=== PATIENT | male | born 1940 | race Caucasian/White ===

== ENCOUNTER 2016-09-17 19:25 | Observation (INO) | payer MEDICARE, BC ==
[2016-09-17] MEDS ORDERED: ASPIRIN 81 MG CHEW PO STA (20:32)
[2016-09-17] MEDS ORDERED: NITROGLYCERIN SL TABS 0.4 MG TAB SUBLINGUAL STA ×3 (20:32)
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
[2016-09-17 20:42] LABS: Basophils % (A) 0 %; CH 30.9; CHCM 34.1; Eosinophils # (A) 0.2 k/uL (0-0.7); Eosinophils % (A) 3 %; HCT 40.8 % (39.0-53.0); HDW 2.32; HGB 13.5 gm/dL (13.0-17.5); Luc # (Auto) 0.08; Luc % (Auto) 1; Lymphocytes # (A) 0.8 k/uL (1.0-4.8); Lymphocytes % (A) 10 %; MCH 30.2 pg (25.0-35.0); MCHC 33.2 g/dL (31.0-37.0); Mean Platelet Volume 7.6; Monocytes # (A) 0.4 k/uL (0-1.0); Monocytes % (A) 5 %; Neutrophils # (A) 6.2 k/uL (1.3-7.7); Neutrophils % (A) 80 %; RBC 4.48 m/uL (4.30-5.90); WBC 7.7 k/uL (3.8-10.6); WBC (Perox) 7.52
[2016-09-17 20:51] LABS: ALT 109 U/L (21-72); AST 161 U/L (17-59); Alkaline Phosphatase 131 U/L (38-126); Anion Gap 12 mmol/L; Blood Urea Nitrogen 16 mg/dL (9-20); Calcium 8.8 mg/dL (8.4-10.2); Carbon Dioxide 29 mmol/L (22-30); Chloride 101 mmol/L (98-107); Glucose 164 mg/dL (74-99); Non-African American GFR(MDRD) >60 (>60 ml/min/1.73 sqM); Potassium 4.1 mmol/L (3.5-5.1); Sodium 142 mmol/L (137-145); Total Bilirubin 1.4 mg/dL (0.2-1.3); Total Protein 7.1 g/dL (6.3-8.2)
[2016-09-17 20:56] LABS: Partial Thromboplastin Time 24.4 sec (22.0-30.0); Prothrombin Time 10.3 sec (9.0-12.0)
[2016-09-17 21:01] LABS: Creatine Kinase 198 U/L (55-170)
[2016-09-17 21:15] LABS: Troponin I <0.012 ng/mL (0.000-0.034)
[2016-09-17] MEDS ORDERED: NITROGLYCERIN OINT 1 INCH/GM PACKET TOPICAL STA (21:18)
--- NOTE | 2016-09-17 21:21 | XR ---
EXAMINATION TYPE: XR chest 2V DATE OF EXAM: 09/17/2016 8:52 PM COMPARISON: Prior chest x-ray 30 Dec 2015 HISTORY: Nausea and chest pain TECHNIQUE: Frontal and lateral views of the chest are obtained on 3 images. FINDINGS: There is no focal air space opacity, pleural effusion, or pneumothorax seen. The cardiac silhouette size is within normal limits. Postop changes are present in the thoracic spine. Pleural ca lcifications compatible with asbestos related disease. There are overlying cardiac leads. The osseou s structures are intact. IMPRESSION: No acute cardiopulmonary process.
[2016-09-17 21:25] LABS: Creatine Kinase MB 5.4 ng/mL (0.0-2.4)
[2016-09-17] MEDS ORDERED: ENALAPRILAT 1.25 MG/ML 1 ML VIAL IVP STA (21:55)
[2016-09-17] MEDS ORDERED: HEPARIN SODIUM,PORCINE 5,000 UNIT/ML 1 ML VIAL IV ONE (21:59)
[2016-09-17] MEDS ORDERED: HEPARIN SODIUM,PORCINE 5,000 UNIT/ML 1 ML VIAL IV PRN (21:59)
[2016-09-17] MEDS ORDERED: NITROGLYCERIN SL TABS 0.4 MG TAB SUBLINGUAL PRN (21:59)
[2016-09-17] MEDS ORDERED: HEPARIN SODIUM,PORCINE/D5W PMX 25,000 UNIT in DEXTROSE/WATER 1 500ML.BAG IV SCH (22:00)
[2016-09-18] MEDS: NITROGLYCERIN OINT 1 INCH/GM PACKET TOPICAL SCH ×4 (01:12→18:37)
[2016-09-18 03:43] LABS: Mean Platelet Volume 7.8
[2016-09-18 04:04] LABS: Cholesterol 80 mg/dL (<200); HDL Cholesterol 43 mg/dL (40-60); Triglycerides 50 mg/dL (<150)
[2016-09-18 04:27] LABS: Troponin I 0.017 ng/mL (0.000-0.034)
[2016-09-18 04:31] LABS: Creatine Kinase MB 3.8 ng/mL (0.0-2.4)
[2016-09-18] MEDS ORDERED: NITROGLYCERIN SL TABS 0.4 MG TAB SUBLINGUAL PRN (07:44)
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
[2016-09-18] MEDS ORDERED: LOSARTAN 50 MG TAB PO SCH (09:00)
[2016-09-18 09:04] LABS: Troponin I 0.02 ng/mL (0.000-0.034)
[2016-09-18 09:10] LABS: Creatine Kinase MB 3.7 ng/mL (0.0-2.4)
[2016-09-18] MEDS: ASPIRIN 325 MG TAB PO SCH (09:54)
[2016-09-18] MEDS: LEVOTHYROXINE 50 MCG TAB PO SCH (09:54)
[2016-09-18 12:28] LABS: Glucose,Whole Blood 116 mg/dL (75-99)
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
[2016-09-18] MEDS ORDERED: DOBUTamine DRIP for NUC MED 500 MG in DEXTROSE/WATER 1 250ML.BAG IV ONE (20:00)
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
[2016-09-19] MEDS: LOSARTAN 50 MG TAB PO SCH ×2 (00:40→13:02)
[2016-09-19] MEDS: LEVOTHYROXINE 50 MCG TAB PO SCH (06:38)
[2016-09-19] MEDS ORDERED: DOBUTamine DRIP for NUC MED 500 MG in DEXTROSE/WATER 1 250ML.BAG IV ONE (07:00)
[2016-09-19 07:40] LABS: Basophils % (A) 1 %; CH 30.8; CHCM 33.5; Eosinophils # (A) 0.5 k/uL (0-0.7); Eosinophils % (A) 9 %; HCT 37.7 % (39.0-53.0); HDW 2.35; HGB 12.1 gm/dL (13.0-17.5); Luc % (Auto) 2; Lymphocytes # (A) 1.5 k/uL (1.0-4.8); Lymphocytes % (A) 25 %; MCH 29.6 pg (25.0-35.0); MCV 92.5 fL (80.0-100.0); Mean Platelet Volume 8.8; Monocytes # (A) 0.5 k/uL (0-1.0); Monocytes % (A) 8 %; Neutrophils # (A) 3.3 k/uL (1.3-7.7); Neutrophils % (A) 56 %; RBC 4.08 m/uL (4.30-5.90); RDW 13.2 % (11.5-15.5); WBC 5.9 k/uL (3.8-10.6); WBC (Perox) 5.94
[2016-09-19 07:54] LABS: ALT 271 U/L (21-72); AST 229 U/L (17-59); Alkaline Phosphatase 141 U/L (38-126); Amylase <30 U/L (30-110); Anion Gap 8 mmol/L; Blood Urea Nitrogen 15 mg/dL (9-20); Calcium 8.7 mg/dL (8.4-10.2); Carbon Dioxide 27 mmol/L (22-30); Chloride 107 mmol/L (98-107); Glucose 92 mg/dL (74-99); Non-African American GFR(MDRD) >60 (>60 ml/min/1.73 sqM); Potassium 4.1 mmol/L (3.5-5.1); Sodium 142 mmol/L (137-145)
--- NOTE | 2016-09-19 08:01 | P.PN ---
Progress Note - Text The patient is a 76-year-old gentleman who presented yesterday with pain that started actually in the epigastric region and radiated to the chest and back. Patient does have a previous cardiac history of previous stenting. He was found to have elevated liver function tests. Patient has been seen by cardiology and by surgery. Please refer to their notes. Presently undergoing ultrasound testing. He denies any recurrence of this pain. Vital signs reveal temperature 98.1 with a pulse of 49 and respirations 16. Blood pressure is 155/74 and is 94% saturated. The clinical exam is stable and unchanged. Laboratory values White count 5.9 with hemoglobin 12.1 and a platelet count of 162. Comprehensive metabolic panel is pending. Impressions and plans: Cardiology and surgical notes regarded. Ultrasound in process. Labs pending. Await for any further recommendations for testing from surgery and cardiology. Discussed with patient at bedside. Questions answered.
--- NOTE | 2016-09-19 08:35 | US ---
EXAMINATION TYPE: US gallbladder DATE OF EXAM: 09/19/2016 7:51 AM COMPARISON: CT on PACS from 2014 CLINICAL HISTORY: Pain. epigastric pain EXAM MEASUREMENTS: Liver Length: 16.3 cm Gallbladder Wall: 0.2 cm CBD: 0.4 cm Right Kidney: 13.5 x 5.5 x 5.7 cm Findings: limited exam by body habitus and midline bowel gas Pancreas: Obscured by bowel gas Liver: limited to intercostal window, visualized portions wnl Gallbladder: No stones seen Evidence for sonographic Davis's sign: No CBD: limited vis, appears wnl Right Kidney: No hydronephrosis or masses seen patient stated he was very tender when scanning over his right kidney area. IMPRESSION: 1. No acute process.
[2016-09-19 12:13] LABS: Glucose,Whole Blood 96 mg/dL (75-99)
--- NOTE | 2016-09-19 12:16 | ECHOS ---
DATE OF SERVICE: 09/19/2016 AGE: 76Y SEX: M HT: 68" WT: 224 lbs. Protocol Johnathan: Others: Dobutamine Stress Echo Stage: 3 Dur. of Exercise: 7:10 *Heart Rate Blood Pressure *Rest: 46 Rest: 133/76 * *Max. Achieved: 126 Maximum BP: 213/43 85% PMHR: 124 100% PMHR: 146 *METS: - INDICATIONS: Chest pain. MEDICATIONS: Atorvastatin, losartan, metformin, levothyroxine, Zetia. FINDINGS: Mr. Cordoba a 76-year-old gentleman with history of hypertension, diabetes and angina, being evaluated for symptoms of chest and abdominal pain. Baseline EKG showed sinus bradycardia with a heart rate of 46. Blood pressure 133/76. A standard dose of dobutamine was initiated at 10 mcg and was titrated to 30 mcg, achieving a maximum heart rate of 126 with a blood pressure of 213/43. EKGs taken during and after the dobutamine infusion did not reveal any significant changes from the baseline. Patient had occasional to frequent unifocal PVCs during the test. ECHO DATA: Baseline echo images show normal wall motion and thickening. Echo images taken at low-dose and high-dose dobutamine showed augmentation of the wall motion and thickening in all the segments. FINAL IMPRESSION: 1. Negative dobutamine stress test. 2. Negative dobutamine stress echo.
[2016-09-19] MEDS: ASPIRIN 325 MG TAB PO SCH (13:02)
[2016-09-19 16:09] VITALS: BP 168/62; PULSE 43; RESP 16; TEMP 98.5
--- NOTE | 2016-09-19 16:48 | P.PN ---
Subjective Principal diagnosis: Abdominal pain Patient had a gallbladder ultrasound this morning that did not reveal any definite gallbladder abnormalities. He was noted to have tenderness over his right kidney. His common bile duct size was thought to be normal. His liver enzymes remain elevated and have gone up slightly but his bilirubin is improved. Amylase and lipase normal. Cardiac evaluation has been completed and was normal. His pain is resolved. Plans are currently underway for the patient to be discharged. Objective - Vital Signs Vital signs: Vital Signs Temp 98.5 F 09/19/16 16:00 Pulse 43 L 09/19/16 16:00 Resp 16 09/19/16 16:00 BP 168/62 09/19/16 16:00 Pulse Ox 97 09/19/16 16:00 Intake & Output 09/18/16 09/19/16 09/19/16 18:59 06:59 18:59 Intake Total 476 Output Total 1350 Balance -874 Weight 102 kg Intake: Oral 476 Output: Urine 1350 Other: Voiding Method Toilet # Voids 1 - Exam Abdomen: Soft, nontender, nondistended - Labs CBC & Chem 7: 09/19/16 07:21 09/19/16 07:21 Labs: Abnormal Lab Results - Last 24 Hours (Table) 09/19/16 09/19/16 Range/Units 07:21 07:21 RBC 4.08 L (4.30-5.90) m/uL Hgb 12.1 L (13.0-17.5) gm/dL Hct 37.7 L (39.0-53.0) % AST 229 H (17-59) U/L ALT 271 H (21-72) U/L Alkaline Phosphatase 141 H (38-126) U/L Total Protein 6.0 L (6.3-8.2) g/dL Albumin 3.3 L (3.5-5.0) g/dL Amylase <30 L (30-110) U/L Assessment and Plan (1) Abdominal pain Narrative/Plan: If the patient is discharged today would consider outpatient CAT scan of the abdomen. Would also advise repeat liver enzymes in the outpatient setting. Consider GI evaluation for the elevated liver enzymes. The patient's presentation could still be related to choledocholithiasis given the elevation in his liver enzymes but would prefer further workup prior to elective cholecystectomy. Patient will follow-up with me as an outpatient. Status: Acute
[2016-09-19] MEDS ORDERED: EZETIMIBE 10 MG TAB PO SCH (21:00)
[2016-09-19] MEDS ORDERED: ATORVASTATIN 80 MG TAB PO SCH (21:00)
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
== END 2016-09-19 16:40 | disposition home or self-care (01) ==
LOC: EC 19:25 → 3OBS 21:59
PROVIDERS: ADMIT Internal Medicine; ATTEND Internal Medicine
DX: K80.50 Calculus of bile duct without cholangitis or cholecystitis without obstruction (principal); R07.89 Other chest pain; I25.10 Atherosclerotic heart disease of native coronary artery without angina pectoris; E11.9 Type 2 diabetes mellitus without complications; E78.5 Hyperlipidemia, unspecified; I10 Essential (primary) hypertension; E03.9 Hypothyroidism, unspecified; N40.0 Benign prostatic hyperplasia without lower urinary tract symptoms; R94.5 Abnormal results of liver function studies; K59.00 Constipation, unspecified; H91.90 Unspecified hearing loss, unspecified ear; I25.2 Old myocardial infarction; M19.90 Unspecified osteoarthritis, unspecified site; R74.8 Abnormal levels of other serum enzymes; Z95.5 Presence of coronary angioplasty implant and graft; Z96.652 Presence of left artificial knee joint; Z87.891 Personal history of nicotine dependence; Z77.098 Contact with and (suspected) exposure to other hazardous, chiefly nonmedicinal, chemicals; Z77.090 Contact with and (suspected) exposure to asbestos; Z79.84 Long term (current) use of oral hypoglycemic drugs; Z79.82 Long term (current) use of aspirin; Z79.899 Other long term (current) drug therapy; Z88.5 Allergy status to narcotic agent; Z82.49 Family history of ischemic heart disease and other diseases of the circulatory system
CPT/HCPCS: 99285 ×2; 96365 ×2; 96366 ×20; 96375 ×2; 96376 ×2; 36415; 94760; 93005; 93017; 93350; 85379; 80061; 80053 ×2; 82150; 82550 ×2; 82553 ×2; 83690; 83735; 84484 ×2; 85025 ×2; 85049; 85610; 85730 ×3; 71020; 76705; G0378 ×3; J1250; J1644 ×2

== ENCOUNTER → 2016-09-26 | Outpatient (CLI) | payer MEDICARE, BC ==
[2016-09-26 19:49] LABS: Blood Urea Nitrogen 17 mg/dL (9-20); Non-African American GFR(MDRD) >60 (>60 ml/min/1.73 sqM)
--- NOTE | 2016-09-26 21:24 | CT ---
EXAMINATION TYPE: CT abdomen w con DATE OF EXAM: 09/26/2016 8:22 PM COMPARISON: Gallbladder ultrasound [address] cap February 11 2015. HISTORY: Calculus of bile duct with acute cholecystitis without obstruction per order. Upper abdomina l pain per patient. CT DLP: 975.40 mGycm, Automated Exposure Control for Dose Reduction was Utilized. CONTRAST: CT scan of the abdomen is performed with oral and with IV Contrast, patient injected with 100 mL of O mnipaque 300. FINDINGS: LUNG BASES: Calcified pleural plaques bilaterally suggest prior asbestos exposure are redemonstrated. Mild cardiomegaly with coronary artery calcification is again seen. LIVER/GB: Subcentimeter low dense lesions scattered throughout the liver are too small to further kimmy racterize but presumed benign. No CT dense intraluminal gallstones are seen. No surrounding inflammatory changes noted. No biliary d ilatation is present. PANCREAS: No significant abnormality is seen. SPLEEN: No significant abnormality is seen. ADRENALS: Left greater than right thickened adrenal glands bilaterally are redemonstrated and may ref lect hyperplasia. KIDNEYS: Subcentimeter low dense lesions scattered throughout both kidneys, right greater than left, are too small to further characterize but presumed benign. BOWEL: Oral contrast only reaches distal jejunal level in the left abdomen. No suspicious small or la rge bowel dilatation is seen. There is persistent abnormal wall thickening near the gastroesophageal junction at level of diaphragmatic hiatus, if there is no history of prior surgery neoplasm needs to be excluded. Scattered colonic diverticula are felt present. No acute diverticulitis is seen. LYMPH NODES: No greater than 1cm abdominal lymph nodes are appreciated. OSSEOUS STRUCTURES: Multilevel spurring in the thoracolumbar spine is present. Ossific fusion lumbosa cral junction is noted. OTHER: There is moderate atherosclerotic change of aorta and branch vessels. IMPRESSION: No CT evidence for acute cholecystitis. No significant acute finding is seen to account for patient's clinical symptoms. Attention to the gastroesophageal junction, presents with severe wal l thickening could reflect product Charles fundoplication surgery, if there is no such history neoplas m would need to be excluded by direct visualization.
== END | disposition home or self-care (01) ==
LOC: RADCTMAIN 18:39
PROVIDERS: ATTEND Internal Medicine
DX: R10.9 Unspecified abdominal pain (principal)
CPT/HCPCS: 82565; 84520; 74160; 36415; Q9967

== ENCOUNTER 2016-10-09 07:27 | Day surgery (SDC) | payer MEDICARE, BC ==
[2016-10-05 13:30] VITALS: BMI 32.1
[~2016-10-09 07:27] MED LIST: LACTATED RINGERS 1,000 ML IV SCH
[2016-10-09 07:50] VITALS: RESP 16; TEMP 97.7
[2016-10-09] MEDS ORDERED: LIDOCAINE 1% 20 ML VIAL (10MG/ML) FOR IV START INTRADERMA ONE (07:54)
[2016-10-09 07:58] LABS: Glucose,Whole Blood 97 mg/dL (75-99)
[2016-10-09] MEDS ORDERED: LIDOCAINE 1% INJ 10MG/ML (20 ML MDV) ONE (08:05)
[2016-10-09] MEDS ORDERED: GLYCOPYRROLATE 0.2 MG/ML 2 ML VIAL ONE (08:05)
[2016-10-09] MEDS ORDERED: PROPOFOL 10 MG/ML 20 ML VIAL IV ONE (08:05)
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
[2016-10-09 09:13] VITALS: BP 145/63; PULSE 58
== END 2016-10-09 09:38 | disposition home or self-care (01) ==
LOC: ORWHC2ENDO 07:27
DX: K29.50 Unspecified chronic gastritis without bleeding (principal); K44.9 Diaphragmatic hernia without obstruction or gangrene; K20.9 Esophagitis, unspecified; R93.5 Abnormal findings on diagnostic imaging of other abdominal regions, including retroperitoneum; I10 Essential (primary) hypertension; E78.5 Hyperlipidemia, unspecified; I25.10 Atherosclerotic heart disease of native coronary artery without angina pectoris; E07.9 Disorder of thyroid, unspecified; Z79.82 Long term (current) use of aspirin; Z79.899 Other long term (current) drug therapy; Z88.5 Allergy status to narcotic agent; I25.2 Old myocardial infarction
CPT/HCPCS: 88305; 88342; 43239; J2001; J2704; 99153

== ENCOUNTER → 2017-09-19 | Outpatient (CLI) | payer MEDICARE, BC ==
--- NOTE | 2017-09-20 10:20 | MR ---
MRI right hip HISTORY: Right hip pain, osteoarthritis Multiplanar multisequence imaging obtained through the pelvis with small iddio-yg-tabg imaging throug h the right hip No comparisons Marginal spurring present in the femoral head. There is some minimal subchondral reactive bone marrow edema present. Grade 2 to grade III chondromalacia present in the right femoral head. No sizable klarissa nt effusion. There are cystic foci adjacent to the acetabular labrum which could possibly represent p sánchez labral cysts with some questionable increased signal within the acetabular labrum, difficult to e xclude a labral tear. Degenerative disc changes are noted incidentally within the lumbar spine. There is some increased signal present at the insertion of the gluteus tendon present which may represent tendinosis or possibly trochanteric bursitis right greater than left. The prostate is enlarged. There is an inferior impression on the urinary bladder. Fluid signal surrou nds the prostate. Urinary bladder shows a thickened wall likely due to chronic outlet obstruction. Di verticula present associated with the urinary bladder. Diverticulosis also noted within the sigmoid c olon. No evident adenopathy. IMPRESSION: Correlate for possible tendinosis at the insertion of the gluteus tendon on the greater t rochanter, difficult to exclude a partial tear. Mild osteoarthritic changes as described. 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 Lumbar MRI may be of benefit. Prostatic enlargement with surround ing fluid present, consider urology consult.
== END | disposition home or self-care (01) ==
LOC: RADMRIMAIN 16:29
PROVIDERS: ATTEND Orthopaedic Surgery
DX: M16.11 Unilateral primary osteoarthritis, right hip (principal); M51.37 Other intervertebral disc degeneration, lumbosacral region

== ENCOUNTER → 2018-03-07 | Outpatient (CLI) | payer MEDICARE, BC ==
[2018-03-07 11:25] LABS: ALT 42 U/L (21-72); AST 48 U/L (17-59); Albumin 3.9 g/dL (3.5-5.0); Alkaline Phosphatase 94 U/L (38-126); Anion Gap 8 mmol/L; Blood Urea Nitrogen 18 mg/dL (9-20); Calcium 9.2 mg/dL (8.4-10.2); Carbon Dioxide 29 mmol/L (22-30); Chloride 104 mmol/L (98-107); Cholesterol 116 mg/dL (<200); Glucose 126 mg/dL (74-99); HDL Cholesterol 48 mg/dL (40-60); LDL Cholesterol,Calculated 51 mg/dL (0-99); Potassium 4.6 mmol/L (3.5-5.1); Sodium 141 mmol/L (137-145); Total Bilirubin 1.1 mg/dL (0.2-1.3); Total Protein 6.7 g/dL (6.3-8.2); Triglycerides 85 mg/dL (<150)
[2018-03-07 11:28] LABS: HCT 43.4 % (39.0-53.0); HGB 14.2 gm/dL (13.0-17.5); MCH 30.7 pg (25.0-35.0); MCHC 32.8 g/dL (31.0-37.0); MCV 93.5 fL (80.0-100.0); Mean Platelet Volume 6.9; Platelet Count 204 k/uL (150-450); RBC 4.64 m/uL (4.30-5.90); RDW 13.7 % (11.5-15.5)
[2018-03-07 11:54] LABS: Prostate Specific Antigen 0.79 ng/mL (0.00-4.00)
[2018-03-07 17:18] LABS: Hemoglobin A1C 6.5 % (4.0-6.0)
== END | disposition home or self-care (01) ==
LOC: LABWHC1 09:41
PROVIDERS: ATTEND Internal Medicine
DX: N40.1 Benign prostatic hyperplasia with lower urinary tract symptoms (principal); E78.4 Other hyperlipidemia; E87.8 Other disorders of electrolyte and fluid balance, not elsewhere classified; E11.69 Type 2 diabetes mellitus with other specified complication; R53.83 Other fatigue
CPT/HCPCS: 36415; 80053; 80061; 83036; 84153; 84443; 85027

== ENCOUNTER 2018-07-31 17:14 | Emergency (ER) | payer BC, MEDICARE, OTHER ==
[2018-07-31 17:35] VITALS: RESP 18; TEMP 96.9
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
[2018-07-31] MEDS ORDERED: LIDOCAINE 1% INJ 10MG/ML (20 ML MDV) SQ STA (19:24)
--- NOTE | 2018-07-31 19:45 | XR ---
EXAMINATION TYPE: XR hand complete LT DATE OF EXAM: 07/31/2018 COMPARISON: NONE HISTORY: Laceration injury TECHNIQUE: 3 views FINDINGS: There are bandages that obscure the distal ring finger. I see no fracture nor dislocation. There is spurring at the IP joints. There are no erosions. There is some spurring at the first carpom etacarpal joint. There is no sign of a foreign body. IMPRESSION: Osteoarthritis. No fracture seen. No sign of a foreign body.
[2018-07-31] MEDS ORDERED: GELATIN SPONGE,ABSORB (LARGE) 1 EACH SPONGE TOPICAL STA (20:20)
[2018-07-31 21:34] VITALS: BP 130/80; PULSE 76
== END 2018-07-31 21:33 | disposition home or self-care (01) ==
LOC: EC 17:14
DX: S61.211A Laceration without foreign body of left index finger without damage to nail, initial encounter (principal); S61.215A Laceration without foreign body of left ring finger without damage to nail, initial encounter; M19.90 Unspecified osteoarthritis, unspecified site; E11.9 Type 2 diabetes mellitus without complications; E78.5 Hyperlipidemia, unspecified; I10 Essential (primary) hypertension; I25.2 Old myocardial infarction; Z95.5 Presence of coronary angioplasty implant and graft; Z96.652 Presence of left artificial knee joint; Z87.891 Personal history of nicotine dependence; Z79.84 Long term (current) use of oral hypoglycemic drugs; Z79.82 Long term (current) use of aspirin; Z79.899 Other long term (current) drug therapy; Z88.5 Allergy status to narcotic agent; W27.0XXA Contact with workbench tool, initial encounter; Y93.89 Activity, other specified; Y92.009 Unspecified place in unspecified non-institutional (private) residence as the place of occurrence of the external cause
CPT/HCPCS: 73130; 99283; 12002; J2001

== ENCOUNTER → 2019-01-09 | Outpatient (CLI) | payer MEDICARE ==
[2019-01-09 10:23] LABS: HCT 38.6 % (39.0-53.0); HGB 12.6 gm/dL (13.0-17.5); MCH 30.2 pg (25.0-35.0); MCHC 32.5 g/dL (31.0-37.0); MCV 92.9 fL (80.0-100.0); Mean Platelet Volume 7.1; Platelet Count 236 k/uL (150-450); RBC 4.15 m/uL (4.30-5.90); RDW 13.8 % (11.5-15.5); WBC 8.2 k/uL (3.8-10.6)
--- NOTE | 2019-01-09 10:25 | XR ---
EXAMINATION TYPE: XR chest 2V DATE OF EXAM: 01/09/2019 COMPARISON: 12/30/2015, 09/17/2016 TECHNIQUE: PA and lateral views submitted. HISTORY: Shortness of breath FINDINGS: Vague densities are seen overlying both upper lobes likely related to pleural plaques. Similar in juana earance the prior exam. There is a 8 mm nodule in the right midlung. Arthropathy of the shoulders and postsurgical change involving the vertebral column. Pleural-based calcifications are noted correlate for asbestos related disease. Hypertrophic and degenerative change of the spine. IMPRESSION: 1. No acute infiltrate correlate for asbestosis related disease with pleural plaques and calcified pa tient. 2. There is a 8mm nodular density in the right midlung not clearly seen on the prior exam CT chest re commended.
[2019-01-09 16:49] LABS: Anion Gap 5.7 mmol/L (4.00-12.00); Calcium 8.8 mg/dL (8.7-10.3); Carbon Dioxide 28.3 mmol/L (21.6-31.8); Potassium 4.2 mmol/L (3.5-5.5)
== END | disposition home or self-care (01) ==
LOC: LABWHC1 09:34
PROVIDERS: ATTEND Internal Medicine Cardiovascular Disease
DX: J98.4 Other disorders of lung (principal); R06.02 Shortness of breath
CPT/HCPCS: 36415; 71046; 80048; 83880; 85027

== ENCOUNTER → 2019-02-06 | Outpatient (CLI) | payer MEDICARE ==
[2019-02-06 14:17] LABS: African American GFR (CKD) >90 (>60 ml/min/1.73 sqM); Blood Urea Nitrogen 23 mg/dL (9-20)
--- NOTE | 2019-02-06 15:30 | CT ---
EXAMINATION TYPE: CT chest wo/w con DATE OF EXAM: 02/06/2019 COMPARISON: CT chest February 11, 2015. Chest x-ray January 09, 2019. HISTORY: Pulmonary nodule. CT DLP: 1305 mGycm. Automated Exposure Control for Dose Reduction was Utilized. TECHNIQUE: CT scan of the thorax is performed following without and with IV Contrast, patient inject ed with 100ml mL of Isovue 300. FINDINGS: LUNGS: There are calcified pleural plaques seen bilaterally mimicking nodule on recent x-ray. No new nodules or masses clearly seen. No pleural effusion or pneumothorax. MEDIASTINUM: There are no greater than 1 cm hilar or mediastinal lymph nodes. No pericardial effusi on is seen. Heart size upper limits of normal. Moderate to severe 3 vessel coronary artery calcifica tion is present which is noted marked underlying coronary artery disease. Stable prominent right pulm onary artery. CT findings suggesting underlying pulmonary artery hypertension. OTHER: Scattered subcentimeter lesions throughout the liver are too small to further characterize per presumed benign. There is extensive surgical change in the mid thoracic spine redemonstrated. IMPRESSION: Evidence of prior asbestos exposure. No suspicious nodules.
== END | disposition home or self-care (01) ==
LOC: RADCTMAIN 13:27
PROVIDERS: ATTEND Internal Medicine
DX: Z77.090 Contact with and (suspected) exposure to asbestos (principal)
CPT/HCPCS: 82565; 84520; 71270; 36415; Q9967

== ENCOUNTER 2020-11-19 06:21 | Day surgery (SDC) | payer MEDICARE ==
[2020-11-17 15:25] VITALS: BMI 36.9
[2020-11-19] MEDS ORDERED: ALPRAZolam 0.5 MG TAB PO PRN (06:35)
[2020-11-19] MEDS ORDERED: ALPRAZolam 0.25 MG TAB PO PRN (06:35)
[2020-11-19] MEDS ORDERED: ASPIRIN 325 MG TAB PO STA (06:35)
[2020-11-19] MEDS ORDERED: NITROGLYCERIN SL TABS 0.4 MG TAB SUBLINGUAL PRN (06:35)
[2020-11-19] MEDS ORDERED: HEPARIN SODIUM,PORCINE 2,500 UNIT in SODIUM CHLORIDE 0.9% 250 ML IRRIGATION PRN (06:35)
[2020-11-19] MEDS ORDERED: SODIUM CHLORIDE 0.9% 1,000 ML in EMPTY BAG 1 BAG IV ONE (06:35)
[2020-11-19] MEDS ORDERED: HEPARIN SODIUM,PORCINE 10,000 UNIT in SODIUM CHLORIDE 0.9% 1,000 ML IRRIGATION PRN (06:35)
[2020-11-19 07:03] LABS: Glucose,Whole Blood 116 mg/dL (75-99)
[2020-11-19 07:09] VITALS: RESP 18; TEMP 97.3
[2020-11-19] MEDS: MIDAZOLAM 2 MG/2 ML VIAL IV ONE ×2 (07:38→07:47)
[2020-11-19] MEDS: fentaNYL (PF) 50 MCG/ML 2 ML AMP IV ONE ×2 (07:38→07:47)
[2020-11-19] MEDS: LIDOCAINE 1% INJ 10MG/ML (20 ML MDV) SQ ONE ×2 (07:41→08:05)
[2020-11-19] MEDS: VERAPAMIL SYRINGE (5 MG/10 ML) INTRAARTER ONE ×2 (07:43→07:52)
[2020-11-19] MEDS ORDERED: IOPAMIDOL-370 125ML BTL INJ ONE (08:24)
[2020-11-19] MEDS ORDERED: RX INFO: IV CONTRAST WAS GIVEN 1 EACH MISC MISCELLANE PRN (09:18)
--- NOTE | 2020-11-19 13:10 | P.CARDCATH ---
Description of Procedure: PROCEDURES PERFORMED: Left heart catheterization, bilateral coronary angiography INDICATION: Abnormal stress test, class 3 angina HISTORY: Patient is a pleasant 80-year-old male with history of diabetes mellitus, coronary artery disease status post stenting of his RCA with the last stent placement in 2013, hyperlipidemia, hypertension, hypothyroidism. Patient admits he has been having throat pain which mainly occurs with exertion and therefore a nuclear stress test was performed which showed a small fixed inferior defect with inducible ischemia in the inferior wall consistent with jerome-infarct ischemia. Therefore recommendation was made for heart catheterization. CONSENT:I have discussed the risks, benefits and alternative therapies for the above-mentioned procedure and for both sedation/analgesia as well as necessary blood product administration, if indicated, as they pertain to this patient. The patient has indicated understanding and acceptance of the risks and procedures discussed. PROCEDURE: After the risks, benefits and alternatives of the above mentioned procedure explained in detail with the patient, informed consent was obtained. Patient was taken to the catheterization lab and prepped and draped in usual fashion. 1% lidocaine was used to anesthetize the right radial artery. A 6- Tongan sheath was placed in the right radial artery using modified Seldinger technique. A 0.035 glide wire was able to be easily advanced up the arm however resistance was met at the elbow. Angiogram was performed which showed an aberrant right radial artery with a very high take off and a very small caliber with inability to pass even a 5Fr catheter. Therefore the radial approach was abandonded. 1% Lidocaine was used to anesthetize the right femoral area. A 6Fr sheath was placed using modified Seldinger technique, micropuncture and ultrasound guidance. Left coronary angiography was performed with a 5-Tongan JL 3.5 catheter and right coronary angiography was performed with a 6-Tongan AR2 catheter in various views. A 6-Tongan pigtail catheter was inserted into the left ventricle and pressure measurements were obtained. The right radial sheath was removed and a TR band was placed with hemostasis achieved. A right femoral angiogram was performed which showed anatomy adequate for closure and therefore a 6Fr Angioseal was placed with hemostasis achieved. The patient tolerated the procedure well. Patient was transported back to the post catheterization holding area in stable condition. Conscious Sedation: Patient was monitored under the direct supervision of vision of myself for conscious sedation using Versed and fentanyl for a total duration of 55 minutes HEMODYNAMICS: Ao:145/87 LV: 138/3, LVEDP 18mmHg SELECTIVE CORONARY ARTERIOGRAPHY: LEFT MAIN: The left main is a large caliber vessel which bifurcates into the LAD and circumflex. There is mild 10% stenosis. LEFT ANTERIOR DESCENDING CORONARY ARTERY: LAD is a large caliber vessel which wraps around to the apex. There is diffuse mild luminal irregularities with up to 30-40% mid LAD stenosis. LEFT CIRCUMFLEX CORONARY ARTERY: Left circumflex is a moderate caliber vessel mild luminal irregularities. RIGHT CORONARY ARTERY: The right coronary artery is a moderate caliber vessel which gives off a PDA and PLV branch and is the dominant vessel. There is diffuse disease throughout of 20-30% and mild luminal irregularities. There is a mid RCA stent which is patent. FINAL IMPRESSION: 1. Mild CAD as described above relatively unchanged from previous films in 2014. 2. Mildly elevated LVEDP PLAN: 1. Aggressive risk factor modification per most recent ACC/AHA guidelines. 2. Follow-up in the office in 1-2 weeks. Patient also stating his throat pain is sometimes associated with a cough with exertion and may consider pulmonary workup.
[2020-11-19 13:36] VITALS: BP 152/76; PULSE 54
== END 2020-11-19 13:57 | disposition home or self-care (01) ==
LOC: CATHCVL 06:21
PROVIDERS: ATTEND Internal Medicine
DX: I25.119 Atherosclerotic heart disease of native coronary artery with unspecified angina pectoris (principal); R94.39 Abnormal result of other cardiovascular function study; R93.1 Abnormal findings on diagnostic imaging of heart and coronary circulation; E78.2 Mixed hyperlipidemia; I11.0 Hypertensive heart disease with heart failure; I50.9 Heart failure, unspecified; E11.9 Type 2 diabetes mellitus without complications; R01.1 Cardiac murmur, unspecified; R07.0 Pain in throat; E66.9 Obesity, unspecified; E03.9 Hypothyroidism, unspecified; I87.2 Venous insufficiency (chronic) (peripheral); Z95.5 Presence of coronary angioplasty implant and graft; Z72.0 Tobacco use; Z79.890 Hormone replacement therapy; Z79.899 Other long term (current) drug therapy; Z79.82 Long term (current) use of aspirin; Z79.84 Long term (current) use of oral hypoglycemic drugs; Z68.36 Body mass index [BMI] 36.0-36.9, adult; Z88.5 Allergy status to narcotic agent
CPT/HCPCS: 93458; 76937; C1760; C1769 ×4; C1894 ×2; J2250; J2001; J3010; Q9967

== ENCOUNTER 2020-12-09 16:44 | Observation (INO) | payer MEDICARE ==
[2020-12-09 16:55] VITALS: RESP 18
[2020-12-09 17:30] LABS: Basophils % (A) 0 %; Eosinophils # (A) 0.3 k/uL (0-0.7); Eosinophils % (A) 4 %; HCT 41.5 % (39.0-53.0); HGB 13.4 gm/dL (13.0-17.5); Lymphocytes # (A) 1.8 k/uL (1.0-4.8); Lymphocytes % (A) 21 %; MCH 30.2 pg (25.0-35.0); MCHC 32.4 g/dL (31.0-37.0); MCV 93.3 fL (80.0-100.0); Mean Platelet Volume 7.8; Monocytes # (A) 0.5 k/uL (0-1.0); Monocytes % (A) 6 %; Neutrophils # (A) 5.7 k/uL (1.3-7.7); Neutrophils % (A) 67 %; Platelet Count 220 k/uL (150-450); RBC 4.45 m/uL (4.30-5.90); RDW 13.4 % (11.5-15.5); WBC 8.5 k/uL (3.8-10.6)
[2020-12-09] MEDS ORDERED: ASPIRIN 81 MG PO STA (17:31)
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
[2020-12-09 17:43] LABS: ALT 28 U/L (4-49); AST 49 U/L (17-59); African American GFR (CKD) >90 (>60 ml/min/1.73 sqM); Albumin 4.1 g/dL (3.5-5.0); Alkaline Phosphatase 104 U/L (38-126); Anion Gap 5 mmol/L; Blood Urea Nitrogen 22 mg/dL (9-20); Calcium 9.2 mg/dL (8.4-10.2); Carbon Dioxide 31 mmol/L (22-30); Chloride 101 mmol/L (98-107); Glucose 107 mg/dL (74-99); Lipase 53 U/L (23-300); Non-African American GFR(CKD) 84 (>60 ml/min/1.73 sqM); Potassium 4.1 mmol/L (3.5-5.1); Sodium 137 mmol/L (137-145); Total Protein 6.8 g/dL (6.3-8.2)
[2020-12-09 17:45] LABS: INR 0.9 (<1.2); Partial Thromboplastin Time 22.4 sec (22.0-30.0); Prothrombin Time 9.8 sec (9.0-12.0)
--- NOTE | 2020-12-09 18:00 | XR ---
EXAMINATION: XR chest 1V portable DATE AND TIME: 12/09/2020 5:34 PM CLINICAL INDICATION: PHH; chest pain TECHNIQUE: AP upright portable COMPARISON: 01/09/2019 PA view FINDINGS: Upper thoracic Beckwith rods intact. The lungs are clear. The pleural spaces are negative. The cardiac silhouette is unremarkable as is the remainder of the mediastinal silhouette. The skeletal structures and soft tissues are negative for acute findings. IMPRESSION: No acute radiographic process.
[2020-12-09] MEDS ORDERED: NITROGLYCERIN SL TABS 0.4 MG TAB SUBLINGUAL PRN (18:21)
[2020-12-09] MEDS ORDERED: EZETIMIBE 10 MG TAB PO SCH (21:00)
[2020-12-09 21:20] LABS: Glucose,Whole Blood 101 mg/dL (75-99)
[2020-12-09] MEDS: INSULIN ASPART (NovoLOG) 100 UNIT/ML VIAL SQ SCH (21:20)
[2020-12-09] MEDS: HEPARIN SODIUM,PORCINE/PF 5,000 UNIT/0.5 ML SYRINGE SQ SCH (23:42)
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
[2020-12-10 05:59] LABS: Cholesterol 96 mg/dL (<200); HDL Cholesterol 38 mg/dL (40-60); LDL Cholesterol,Calculated 41 mg/dL (0-99); Triglycerides 85 mg/dL (<150)
[2020-12-10] MEDS ORDERED: LEVOTHYROXINE 50 MCG TAB PO SCH (06:30)
[2020-12-10 08:39] LABS: Glucose,Whole Blood 103 mg/dL (75-99)
[2020-12-10] MEDS ORDERED: LOSARTAN 50 MG TAB PO SCH (09:00)
[2020-12-10] MEDS ORDERED: ASPIRIN 325 MG TAB PO SCH (09:00)
[2020-12-10] MEDS ORDERED: ATORVASTATIN 40 MG TAB PO SCH (09:00)
[2020-12-10] MEDS ORDERED: ASPIRIN 81 MG PO SCH (09:00)
[2020-12-10] MEDS ORDERED: FUROSEMIDE 40 MG TAB PO SCH (09:00)
[2020-12-10 09:17] VITALS: BP 154/65; PULSE 55; TEMP 98.3
[2020-12-10] MEDS: INSULIN ASPART (NovoLOG) 100 UNIT/ML VIAL SQ SCH (09:18)
[2020-12-10] MEDS: HEPARIN SODIUM,PORCINE/PF 5,000 UNIT/0.5 ML SYRINGE SQ SCH (09:31)
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
--- NOTE | 2020-12-10 11:22 | P.DS ---
Providers Date of admission: 12/09/20 18:21 Expected date of discharge: 12/10/20 Attending physician: Hamzah Figueroa MD Consults: 12/09/20 18:21 Consult Physician Urgent Consulting Provider: Shaheen Merino Consult Reason/Comments: acs Do you want consulting provider notified?: Yes Primary care physician: Melba Eugene Hospital Course: Discharge Diagnosis: Epigastric pain, nausea, and diaphoresis likely secondary to GERD, resolved prior to arrival, acute coronary syndrome ruled out. Coronary artery disease with previous stent placement Hypertension Hyperlipidemia Brj-rqnzbkp-tdjkmstow diabetes mellitus type 2 Hypothyroidism Chronic back pain Hospital Course: Patient is a 80-year-old male with a past medical history including CAD with previous stent placement to RCA, hypertension, hyperlipidemia, hypothyroidism, type II hhb-qxibtiq-bunucrzhr diabetes mellitus, and chronic back pain. Patient presented to the emergency department yesterday evening with a chief complaint of epigastric pain accompanied by nausea and diaphoresis which was relieved prior to arrival after taking a sublingual nitroglycerin tablet. Patient states he was sitting at home and had sudden onset pain in his epigastric region accompanied by nausea and diaphoresis, patient states he tried everything to make it better and finally took a nitro and that went away so he became concerned and called his facility specialist's who advised him to go to the emergency department for further evaluation. Upon arrival to the emergency department patient's pain had completely resolved. His EKG revealed sinus bradycardia at 55 bpm with a first-degree AV block with a TN interval of 218 ms and occasional PVCs, no T-wave or ST abnormalities showing no signs of acute ischemia. Chest x-ray completed negative for acute cardiopulmonary process. Patient was given a dose of aspirin and admitted under our services for continued close monitoring accompanied by consult to cardiology. Troponins trended resulting in 0.013, 0.024, and 0.019. CBC and BMP completed showing no significant abnormalities. Liver profile unremarkable. Lipase normal at 53. Lipid profile revealing a low HDL of 38 otherwise unremarkable. Covid 19 PCR negative. Patient was seen and fully evaluated by cardiology and has been cleared from cardiac standpoint ruling out acute coronary syndrome. Patient's condition stable at this time. Vital signs unremarkable. Patient's had no further episodes of epigastric pain, nausea, or diaphoresis since arrival to hospital. Patient being discharged home and instructed to resume home medication regimen including aspirin, losartan, atorvastatin, furosemide, levothyroxine, metformin, ezetimibe, and as needed sublingual nitroglycerin tablets. No medication changes made at this time. Patient to follow up outpatient with his PCP, Dr. Eugene, in 1-2 days for a post-hospitalization follow-up and with his facility specialist, Dr. Merino, in 2 weeks. Physical exam: Patient seen and examined at bedside. Vital signs reviewed and stable. Patient reports that he remains free of any pains or complaints since arriving in the hospital including headache, lightheadedness, dizziness, chest pain or palpitations, abdominal or epigastric pain, nausea, vomiting, or experiencing any numbness/tingling/weakness in extremities. General: Nontoxic, no distress and appears stated age. Derm: Skin warm and dry, normal coloration for ethnicity. Head: Atraumatic, normocephalic and symmetric. Eyes: EOMs intact, no lid lag, and anicteric sclera Mouth: no lip lesions, mucus membranes moist Cardiovascular: regular rate and rhythm with normal S1S2, no murmur, positive posterior tibial pulses bilaterally, and cap refill < 2 seconds. Lungs: Respirations even, regular, and unlabored on room air. Lungs CTA bilaterally, no rhonchi, no rales, no wheezing, and no accessory muscle usage. Abdominal: soft, nontender to palpation, no guarding, no appreciable organomegaly Ext: ROM intact. No gross muscle atrophy, no edema, no contractures Neuro: Speech clear, face symmetrical and CN II-XII grossly intact with no noted focal neuro deficits Psych: Alert and oriented to person, place, time, and situation. Appropriate and pleasant affect. A total of 45 minutes of time were spent preparing this complex discharge summary. Patient Condition at Discharge: Fair Plan - Discharge Summary Discharge Rx Participant: Yes New Discharge Prescriptions: Continue Levothyroxine Sodium [Synthroid] 50 mcg PO DAILY metFORMIN HCL [Glucophage] 500 mg PO BID Ezetimibe [Zetia] 10 mg PO HS Aspirin 81 mg PO HS Nitroglycerin Sl Tabs [Nitrostat] 0.4 mg SUBLINGUAL Q5M PRN PRN Reason: Chest Pain Vitamin B Complex 1 cap PO DAILY Calcium Carbonate/Vitamin D3 [Calcium 600-Vit D3 400 Tablet] 1 tab PO DAILY Ascorbic Acid [Vitamin C] 500 mg PO DAILY Omar-3 Fatty Acids/Fish Oil [Fish Oil 1,000 mg Softgel] 1 cap PO DAILY Losartan Potassium [Cozaar] 50 mg PO DAILY Atorvastatin Calcium [Lipitor] 40 mg PO DAILY Furosemide [Lasix] 40 mg PO DAILY Glucosam/Jorge-Msm1/C/Lucio/Bosw [Goumxmmlxgl-Lriangcofex-DVY Tb] 1 tab PO LOY LY Discharge Medication List Ezetimibe [Zetia] 10 mg PO HS 07/02/14 [History] Levothyroxine Sodium [Synthroid] 50 mcg PO DAILY 07/02/14 [History] metFORMIN HCL [Glucophage] 500 mg PO BID 07/02/14 [History] Ascorbic Acid [Vitamin C] 500 mg PO DAILY 12/30/15 [History] Aspirin 81 mg PO HS 12/30/15 [History] Calcium Carbonate/Vitamin D3 [Calcium 600-Vit D3 400 Tablet] 1 tab PO DAILY 12/30/15 [History] Nitroglycerin Sl Tabs [Nitrostat] 0.4 mg SUBLINGUAL Q5M PRN 12/30/15 [History] Omar-3 Fatty Acids/Fish Oil [Fish Oil 1,000 mg Softgel] 1 cap PO DAILY 12/30/15 [History] Vitamin B Complex 1 cap PO DAILY 12/30/15 [History] Losartan Potassium [Cozaar] 50 mg PO DAILY 09/17/16 [History] Atorvastatin Calcium [Lipitor] 40 mg PO DAILY 11/17/20 [History] Furosemide [Lasix] 40 mg PO DAILY 12/09/20 [History] Glucosam/Jorge-Msm1/C/Lucio/Bosw [Lvmpeohzywp-Rfqodxfiasj-QNF Tb] 1 tab PO DAILY 12/09/20 [History] Follow up Appointment(s)/Referral(s): Shaheen Merino DO [STAFF PHYSICIAN] - 2 Weeks Melba Eugene MD [Primary Care Provider] - 1-2 days Activity/Diet/Wound Care/Special Instructions: Activity: As tolerated Diet: Heart healthy and carb consistent diet. Special Instructions: You are being discharged home, we ask that you follow-up with your PCP in 1-2 days for post hospitalization follow-up visit. Please follow-up with your facility specialist in 2 weeks. Thank you for allowing us the opportunity to participate in your care!! Discharge Disposition: HOME SELF-CARE
== END 2020-12-10 11:31 | disposition home or self-care (01) ==
LOC: EC 16:44 → 6NMEDSUR 18:21
PROVIDERS: ADMIT Internal Medicine; ATTEND Internal Medicine
DX: R10.13 Epigastric pain (principal); R11.0 Nausea; R61 Generalized hyperhidrosis; I44.0 Atrioventricular block, first degree; I25.10 Atherosclerotic heart disease of native coronary artery without angina pectoris; I10 Essential (primary) hypertension; I36.1 Nonrheumatic tricuspid (valve) insufficiency; R00.1 Bradycardia, unspecified; E78.5 Hyperlipidemia, unspecified; E03.9 Hypothyroidism, unspecified; E11.9 Type 2 diabetes mellitus without complications; K21.9 Gastro-esophageal reflux disease without esophagitis; K57.90 Diverticulosis of intestine, part unspecified, without perforation or abscess without bleeding; G89.29 Other chronic pain; M54.9 Dorsalgia, unspecified; N40.0 Benign prostatic hyperplasia without lower urinary tract symptoms; H93.13 Tinnitus, bilateral; R26.9 Unspecified abnormalities of gait and mobility; R42 Dizziness and giddiness; M19.90 Unspecified osteoarthritis, unspecified site; Z20.822 Contact with and (suspected) exposure to COVID-19; Z79.890 Hormone replacement therapy; Z79.82 Long term (current) use of aspirin; Z79.84 Long term (current) use of oral hypoglycemic drugs; Z79.899 Other long term (current) drug therapy; Z88.5 Allergy status to narcotic agent; I25.2 Old myocardial infarction; Z95.5 Presence of coronary angioplasty implant and graft; Z87.81 Personal history of (healed) traumatic fracture; Z77.090 Contact with and (suspected) exposure to asbestos; Z77.098 Contact with and (suspected) exposure to other hazardous, chiefly nonmedicinal, chemicals; Z86.010 Personal history of colon polyps; Z87.19 Personal history of other diseases of the digestive system; Z87.891 Personal history of nicotine dependence; Z90.49 Acquired absence of other specified parts of digestive tract; Z96.652 Presence of left artificial knee joint; Z98.42 Cataract extraction status, left eye; Z98.41 Cataract extraction status, right eye; Z98.890 Other specified postprocedural states; Z82.49 Family history of ischemic heart disease and other diseases of the circulatory system; Z80.8 Family history of malignant neoplasm of other organs or systems
CPT/HCPCS: 96372 ×2; 93005 ×2; 99285; 36415; 94760; 80061; 80053; 83690; 83735; 84484 ×2; 85025; 85610; 85730; 87635; 71045; G0378 ×2; J1644 ×2

== ENCOUNTER → 2021-02-23 | Outpatient (CLI) | payer MEDICARE ==
--- NOTE | 2021-02-23 16:58 | US ---
EXAMINATION TYPE: US gallbladder DATE OF EXAM: 02/23/2021 COMPARISON: 09/19/2016 CLINICAL HISTORY: R10.11 right upper quadrant pain. Chest pain EXAM MEASUREMENTS: Liver Length: 18.8 cm Gallbladder Wall: 0.2 cm CBD: 0.4 cm Right Kidney: 11.7 x 4.4 x 5.0 cm large barrel chest male with bowel gas Pancreas: not seen due to habitus and bowel gas Liver: unable to assess left lobe due to bowel gas and habitus, right lobe slightly enlarged and di fficult to penetrate, Intercostal imaging only . There is likely element of fatty infiltration of th e liver. No evidence of discrete hepatic mass of visualized portions or intrahepatic biliary dilatati on. The right lobe measures 18.8 cm. Gallbladder: intercostal views only wnl no definite evidence of gallstones, sludge, or pericholecyst ic fluid. Gallbladder wall measures 2 mm, within normal limits. Evidence for sonographic Davis's sign: no CBD: wnl Right Kidney: wnl IMPRESSION: 1. Severely limited study due to patient's body habitus and bowel gas. 2. The pancreas is not seen due to body habitus and bowel gas. 3. The liver is difficult to visualize. There is likely fatty infiltration of liver. No discrete hepa tic mass or intrahepatic biliary dilatation. The right lobe appears slightly enlarged. 4. No gallstones are seen. The gallbladder is difficult to visualize. 5. No renal calculi or hydronephrosis of the right kidney
== END | disposition home or self-care (01) ==
LOC: RADUSWWP 07:32
PROVIDERS: ATTEND Family Medicine
DX: R16.0 Hepatomegaly, not elsewhere classified (principal); R14.3 Flatulence; A09 Infectious gastroenteritis and colitis, unspecified
CPT/HCPCS: 76705

== ENCOUNTER → 2022-11-28 | Outpatient (CLI) | payer MEDICARE ==
[2022-11-28 15:46] LABS: Anion Gap 10.8 mmol/L (10.00-18.00); BUN/Creat Ratio 26.7 Ratio (12.00-20.00); Blood Urea Nitrogen 26.7 mg/dL (9.0-27.0); Calcium 9.4 mg/dL (8.7-10.3); Carbon Dioxide 30.2 mmol/L (20.0-27.5); Non-African American GFR(CKD) 70.8 (60.0-200.0); Potassium 4.7 mmol/L (3.5-5.5)
== END | disposition home or self-care (01) ==
LOC: LABWHC1 09:35
PROVIDERS: ATTEND Nurse Practitioner Acute Care
DX: R60.0 Localized edema (principal); I10 Essential (primary) hypertension
CPT/HCPCS: 36415; 80048

== ENCOUNTER 2024-03-17 11:26 | Day surgery (SDC) | payer MEDICARE ==
[2024-03-17 12:13] VITALS: TEMP 97.8
[2024-03-17] MEDS: SODIUM CHLORIDE 0.9% 500 ML 500 ML IV SCH (12:13)
[2024-03-17] MEDS: LIDOCAINE 1% (10MG/ML) FOR IV START INTRADERMA PRN (12:20)
[2024-03-17] MEDS: IV FLUID CONTINUATION 500 ML IV ONE (12:20)
[2024-03-17] MEDS: IV FLUID CONTINUATION 1,000 ML IV ONE (12:20)
[2024-03-17 12:22] LABS: Glucose,Whole Blood 106 mg/dL (70-110)
[2024-03-17 12:46] LABS: African American GFR (CKD) >90 (>60 ml/min/1.73 sqM); Anion Gap 4 mmol/L; Blood Urea Nitrogen 18 mg/dL (9-20); Calcium 9.1 mg/dL (8.4-10.2); Carbon Dioxide 29 mmol/L (22-30); Chloride 108 mmol/L (98-107); Glucose 105 mg/dL (74-99); Non-African American GFR(CKD) >90 (>60 ml/min/1.73 sqM); Sodium 141 mmol/L (137-145)
[2024-03-17] MEDS: BENZOCAINE SPRAY 1 CAN TOPICAL ONE ×3 (12:59→13:48)
[2024-03-17] MEDS ORDERED: LIDOCAINE 1% INJ 10MG/ML (20 ML MDV) ONE (13:40)
[2024-03-17] MEDS ORDERED: PROPOFOL 10 MG/ML 20 ML VIAL IV ONE (13:40)
[2024-03-17 14:34] VITALS: RESP 16
[2024-03-17 15:12] VITALS: BP 168/82; PULSE 70
--- NOTE | 2024-03-19 07:57 | P.TEE ---
Date of Procedure: 03/17/24 Description of Procedure(s): Procedure performed: Transesophageal Echocardiogram with color flow doppler, pu lsed wave doppler and continuous wave doppler, attempted synchronized cardioversion Moderate conscious sedation: Moderate conscious sedation was supplied by anesthesia, see separate report. Complications: none Indications: Afib PROCEDURE: After the risks, benefits and alternatives of the above mentioned procedure was explained in detail with the patient, informed consent was obtained. Patient was brought to the lab in a fasting state. Patient was given sedation by anesthesia, see separate report. The throat was sprayed with Hurricane to anesthetize the throat. A lubricated Omni probe was then introduced into the esophagus and stomach and multiple views were obtained. 2D echo with color flow doppler, pulsed wave doppler and continuous wave doppler was utilized. Agitated saline bubbles were injected to assess for any intra- atrial shunt. The probe was then removed. There was no thrombus noted and therefore patient underwent synchronized cardioversion x 3 with 200J without and change in rhythm, patient in Afib. Patient tolerated the procedure well. Patient was transferred to the post procedure area in stable and satisfactory condition. FINDINGS: 1. The aortic valve is tricuspid mild aortic valve sclerosis without significant aortic stenosis. 2. The mitral valve appears be normal with mild regurgitation. 3. Tricuspid valve appears to be normal. 4. The interatrial septum is intact. No evidence of PFO. 5. Left atrial appendage is free of clot with significant smoke. 6. Left ventricular ejection fraction 50-55%.
== END 2024-03-17 15:23 | disposition home or self-care (01) ==
LOC: OR 11:26
PROVIDERS: ATTEND Internal Medicine
DX: I48.91 Unspecified atrial fibrillation (principal); I08.3 Combined rheumatic disorders of mitral, aortic and tricuspid valves; I11.0 Hypertensive heart disease with heart failure; I50.32 Chronic diastolic (congestive) heart failure; I25.110 Atherosclerotic heart disease of native coronary artery with unstable angina pectoris; Z95.5 Presence of coronary angioplasty implant and graft; E11.69 Type 2 diabetes mellitus with other specified complication; E78.2 Mixed hyperlipidemia; E03.9 Hypothyroidism, unspecified; K21.9 Gastro-esophageal reflux disease without esophagitis; I25.2 Old myocardial infarction; Z86.16 Personal history of COVID-19; Z88.5 Allergy status to narcotic agent; F17.210 Nicotine dependence, cigarettes, uncomplicated; Z82.49 Family history of ischemic heart disease and other diseases of the circulatory system; Z79.82 Long term (current) use of aspirin; Z79.84 Long term (current) use of oral hypoglycemic drugs; Z79.899 Other long term (current) drug therapy; Z79.01 Long term (current) use of anticoagulants; Z79.890 Hormone replacement therapy
CPT/HCPCS: 93312; 93320; 93325; 92960; 80048; J2001; J2704

== ENCOUNTER 2025-03-03 11:56 | Day surgery (SDC) | payer MEDICARE ==
[~2025-03-03 11:56] MED LIST changes: +ALPRAZolam 0.25 MG TAB PO PRN; +ALPRAZolam 0.5 MG TAB PO PRN; +HEPARIN SODIUM,PORCINE (1 ML) 2,500 UNIT in SODIUM CHLORIDE 0.9% 250 ML IRRIGATION PRN; +HEPARIN SODIUM,PORCINE 10,000 UNIT in SODIUM CHLORIDE 0.9% 1,000 ML IRRIGATION PRN; -LACTATED RINGERS 1,000 ML IV SCH; +NITROGLYCERIN SL TABS 0.4 MG TAB SUBLINGUAL PRN
[2025-03-03] MEDS: IV FLUID CONTINUATION 1,000 ML IV ONE (12:21)
[2025-03-03] MEDS: SODIUM CHLORIDE 0.9% 1,000 ML in EMPTY BAG 1 BAG IV SCH (12:21)
[2025-03-03] MEDS: ATORVASTATIN 80 MG TAB PO STA (12:29)
[2025-03-03] MEDS: ASPIRIN 325 MG TAB PO STA (12:29)
[2025-03-03 12:31] LABS: Glucose,Whole Blood 107 mg/dL (70-110)
[2025-03-03 12:34] VITALS: RESP 16; TEMP 98.2
[2025-03-03] MEDS ORDERED: amLODIPine 10 MG TAB PO STA (12:36)
[2025-03-03 12:37] LABS: Basophils # (A) 0.05 10*3/uL (0.00-0.10); Basophils % (A) 0.7 %; Eosinophils # (A) 0.43 10*3/uL (0.04-0.35); Eosinophils % (A) 6.2 %; HCT 41.6 % (39.6-50.0); HGB 13.9 g/dL (13.0-17.0); Lymphocytes # (A) 1.77 10*3/uL (0.90-5.00); Lymphocytes % (A) 25.6 %; MCH 31.2 pg (27.0-32.0); MCHC 33.4 g/dL (32.0-37.0); MCV 93.3 fL (80.0-97.0); Monocytes # (A) 0.53 10*3/uL (0.20-1.00); Monocytes % (A) 7.7 %; Neutrophils # (A) 4.11 10*3/uL (1.80-7.70); Neutrophils % (A) 59.5 %; Platelet Count 210 10*3/uL (140-440); RBC 4.46 10*6/uL (4.40-5.60); RDW 13.4 % (11.5-14.5); WBC 6.91 10*3/uL (4.50-10.00)
[2025-03-03] MEDS: amLODIPine 5 MG TAB PO STA (12:37)
[2025-03-03] MEDS: amLODIPine 10 MG TAB PO STA (12:42)
[2025-03-03 12:48] LABS: African American GFR (CKD) >90 (>60 ml/min/1.73 sqM); Anion Gap 9 mmol/L; Blood Urea Nitrogen 21 mg/dL (9-20); Calcium 9.4 mg/dL (8.4-10.2); Carbon Dioxide 31 mmol/L (22-30); Chloride 100 mmol/L (98-107); Glucose 107 mg/dL (74-99); Non-African American GFR(CKD) 89 (>60 ml/min/1.73 sqM); Potassium 4.2 mmol/L (3.5-5.1); Sodium 140 mmol/L (137-145)
[2025-03-03] MEDS: LOSARTAN 50 MG TAB PO STA (13:03)
[2025-03-03] MEDS: MIDAZOLAM 2 MG/2 ML VIAL IVP ONE (13:37)
[2025-03-03] MEDS: fentaNYL (PF) 50 MCG/1 ML VIAL IVP ONE (13:37)
[2025-03-03] MEDS: LIDOCAINE 2% (PF) 20 MG/ML 5 ML VIAL SQ ONE (13:46)
[2025-03-03] MEDS: VERAPAMIL 2.5 MG/ML 4 ML VIAL INTRAARTER ONE (13:50)
[2025-03-03] MEDS: HEPARIN SODIUM 1,000 UN/ML (10ML VL) IVP ONE (13:55)
[2025-03-03] MEDS: HEPARIN SODIUM,PORCINE 10,000 UNIT in SODIUM CHLORIDE 0.9% 1,000 ML IRRIGATION ONE (14:08)
[2025-03-03] MEDS: IOPAMIDOL-370 100ML BTL INTRATHECA ONE (14:08)
[2025-03-03] MEDS: HEPARIN SODIUM,PORCINE (1 ML) 2,500 UNIT in SODIUM CHLORIDE 0.9% 250 ML IRRIGATION ONE (14:08)
[2025-03-03 17:05] VITALS: BP 140/88; PULSE 52
--- NOTE | 2025-03-04 11:27 | P.CARDCATH ---
Description of Procedure: PROCEDURES PERFORMED: Left heart catheterization, bilateral coronary angiography, ultrasound guided arterial access INDICATION: Chest pain concerning for angina CONSENT:I have discussed the risks, benefits and alternative therapies for the above-mentioned procedure and for both sedation/analgesia as well as necessary blood product administration, if indicated, as they pertain to this patient. The patient has indicated understanding and acceptance of the risks and procedures discussed. PROCEDURE: After the risks, benefits and alternatives of the above mentioned procedure explained in detail with the patient, informed consent was obtained. Patient was taken to the catheterization lab and prepped and draped in usual fashion. Ultrasound guidance was used to assess for arterial access. 1% lidocaine was used to anesthetize the right ulnar artery. A 6-Tongan sheath was placed in the right ulnar artery using modified Seldinger technique and ultrasound guidance, given previous issues with the radial artery axis. Left coronary angiography was performed with a 5-Tongan JL 3.5 catheter and right coronary angiography was performed with a 5-Tongan AR2 catheter in various views. A 5-Tongan AR2 catheter was inserted into the left ventricle and pressure measurements were obtained. The right radial sheath was removed and a TR band was placed with hemostasis achieved. The patient tolerated the procedure well. Patient was transported back to the post catheterization holding area in stable condition. Conscious Sedation: Patient was monitored under the direct supervision of myself for conscious sedation using Versed and fentanyl for a total duration of 19 minutes HEMODYNAMICS: Aorta: 135/72 LV: 141/8, LVEDP 14, mean gradient 9 mmHg across the valve SELECTIVE CORONARY ARTERIOGRAPHY: LEFT MAIN: The left main is a large caliber vessel which bifurcates into the LAD and circumflex. There is the left main 30% stenosis. LEFT ANTERIOR DESCENDING CORONARY ARTERY: LAD is a large caliber vessel which wraps around to the apex. There is diffuse 20 to 30% proximal and mid LAD stenosis. The first septal assistant to the president appears to be giving collaterals to a PDA however no obvious PDA occlusion noted on right imaging. LEFT CIRCUMFLEX CORONARY ARTERY: Left circumflex is a moderate to large caliber vessel. There is a high OM1 branch which has 30 to 40% proximal stenosis. Otherwise the circumflex gives off small to moderate caliber OM 2 and OM 3 with mild 30 to 40% stenosis. RIGHT CORONARY ARTERY: The right coronary artery is a large caliber vessel which gives off a PDA and PLV branch and is the dominant vessel. There is a patent proximal RCA stent. There is diffuse mild to moderate 20 to 30% stenosis. Lisa ot exclude a flush CREW LEADER of the PDA vessel however ostium not able to be identified. FINAL IMPRESSION: 1. CAD as described above including left main 30% stenosis, 20 to 30% proximal and mid LAD stenosis, OM 1 30 to 40% stenosis, patent RCA stent with likely small caliber PDA CREW LEADER and [id number] collaterals 2. Normal left sided filling pressures 3. Mild aortic stenosis PLAN: 1. Aggressive risk factor modification per most recent ACC/AHA guidelines. 2. Predominantly mild disease with patent stent however appears to be small caliber CREW LEADER RCA similar to prior images with [id number] collaterals. Continue medical therapy.
== END 2025-03-03 17:55 | disposition home or self-care (01) ==
LOC: CATHCVL 11:56
PROVIDERS: ATTEND Internal Medicine
DX: I25.119 Atherosclerotic heart disease of native coronary artery with unspecified angina pectoris (principal); I48.19 Other persistent atrial fibrillation; I35.0 Nonrheumatic aortic (valve) stenosis; I11.0 Hypertensive heart disease with heart failure; I50.32 Chronic diastolic (congestive) heart failure; E78.2 Mixed hyperlipidemia; E11.9 Type 2 diabetes mellitus without complications; Z72.0 Tobacco use; Z95.5 Presence of coronary angioplasty implant and graft; Z88.5 Allergy status to narcotic agent; Z79.82 Long term (current) use of aspirin; Z79.02 Long term (current) use of antithrombotics/antiplatelets; Z79.84 Long term (current) use of oral hypoglycemic drugs; Z79.890 Hormone replacement therapy; Z79.899 Other long term (current) drug therapy
CPT/HCPCS: 93458; 80048; 85025; 99152; C1769 ×3; C1894; J2250; J1644 ×3; Q9967; J2003; J3010